=== PATIENT | female | born 1960 | race Caucasian/White ===

== ENCOUNTER 2020-07-27 09:14 | Outpatient (REF) | payer BC, SELFPAY ==
[2020-07-27 11:40] LABS: Hematocrit 43.2 % (37-47); Hemoglobin 13.7 g/dl (12.0-16.0); Mean Corpuscular HGB Conc 31.7 g/dl (31.0-35.0); Mean Corpuscular Hemoglobin 29.1 pg (27.0-33.0); Mean Corpuscular Volume 91.7 fL (80-98); Mean Platelet Volume 10.9 fL (9.4-12.3); Platelet Count 322 X10*3/uL (160-400); Red Blood Count 4.71 X10*6/uL (4.20-5.50); Red Cell Distribution Width 12.7 % (11.0-16.0); White Blood Count 7.7 X10*3/uL (4.8-10.8)
[2020-07-27 11:47] LABS: Glucose Urine UA NEG (NEG); Leukocyte Esterase Urine NEG (NEG); Nitrite Urine NEG (NEG); Specific Gravity - Urine 1.015 (1.005-1.025); Urine Blood 2+ (NEG); Urine Ketones NEG (NEG); Urine Protein NEG (NEG-TRACE)
[2020-07-27 11:54] LABS: Appearance Urine CLEAR; Color Urine YELLOW
[2020-07-27 11:57] LABS: Mucus Urine TRACE /LPF; Renal Epithelial Cells Urine 1+ /LPF; Squamous Epithelial Cell Urine TRACE /LPF; WBC Urine 0-2 /HPF (0-4)
[2020-07-27 12:17] LABS: Thyroid Stimulating Hormone 1.43 uIU/mL (0.32-4.0)
[2020-07-27 12:18] LABS: Alanine Aminotransferase 20 U/L (0-31); Albumin Level 4.4 g/dL (3.5-5.0); Alkaline Phosphatase 76 U/L (39-117); Anion Gap 14 (12-20); Aspartate Amino Transferase 15 U/L (5-31); Bilirubin Total 0.4 mg/dL (0.0-1.0); Blood Urea Nitrogen 13 mg/dL (9-16); Calcium 9.2 mg/dL (8.4-10.2); Carbon Dioxide 26 mmol/L (22-29); Chloride 105 mmol/L (96-108); Cholesterol 218 mg/dL; Estimated Glomerular Filt Rate > 60; Glucose Fasting 101 mg/dL (60-99); HDL Cholesterol 47 mg/dL; LDL Cholesterol Calculated 129 mg/dl; Sodium 140 mmol/L (135-145); Total Protein 7.5 g/dL (6.5-8.0); Triglycerides 210 mg/dL
== END 2020-07-27 09:15 | disposition home or self-care (01) ==
LOC: HO.HMGCLDS 09:14
PROVIDERS: PCP Internal Medicine; Visit Provider Internal Medicine
DX: E78.5 Hyperlipidemia, unspecified (principal); I10 Essential (primary) hypertension; Z00.00 Encounter for general adult medical examination without abnormal findings
CPT/HCPCS: 36415; 80053; 80061; 81001; 84443; 85027

== ENCOUNTER 2021-03-25 08:55 | Outpatient (REF) | payer BC, SELFPAY ==
[2021-03-25 11:51] LABS: Hematocrit 41.2 % (37-47); Hemoglobin 12.9 g/dl (12.0-16.0); Mean Corpuscular HGB Conc 31.3 g/dl (31.0-35.0); Mean Corpuscular Hemoglobin 28.9 pg (27.0-33.0); Mean Corpuscular Volume 92.4 fL (80-98); Platelet Count 308 X10*3/uL (160-400); Red Blood Count 4.46 X10*6/uL (4.20-5.50); Red Cell Distribution Width 12.6 % (11.0-16.0); White Blood Count 7.9 X10*3/uL (4.8-10.8)
[2021-03-25 12:01] LABS: Alanine Aminotransferase 24 U/L (0-31); Albumin Level 4.1 g/dL (3.5-5.0); Alkaline Phosphatase 76 U/L (39-117); Anion Gap 15 (12-20); Aspartate Amino Transferase 20 U/L (5-31); Bilirubin Total 0.5 mg/dL (0.0-1.0); Blood Urea Nitrogen 14 mg/dL (9-16); Calcium 9.3 mg/dL (8.4-10.2); Carbon Dioxide 24 mmol/L (22-29); Chloride 106 mmol/L (96-108); Cholesterol 201 mg/dL; Estimated Glomerular Filt Rate > 60; Glucose Fasting 105 mg/dL (60-99); HDL Cholesterol 40 mg/dL; LDL Cholesterol Calculated 118 mg/dl; Potassium 4.8 mmol/L (3.3-5.1); Sodium 140 mmol/L (135-145); Total Protein 7.1 g/dL (6.5-8.0); Triglycerides 217 mg/dL
[2021-03-25 12:08] LABS: Glucose Urine UA NEG (NEG); Leukocyte Esterase Urine NEG (NEG); Nitrite Urine NEG (NEG); Urine Blood 2+ (NEG); Urine Ketones NEG (NEG); Urine Protein NEG (NEG-TRACE)
[2021-03-25 12:14] LABS: TSH reflex Free T4 2.34 uIU/mL (0.32-4.0)
[2021-03-25 12:18] LABS: Appearance Urine CLEAR; Color Urine YELLOW
[2021-03-25 12:47] LABS: RBC Urine 0-2 /HPF (0); Squamous Epithelial Cell Urine TRACE /LPF; WBC Urine 0-2 /HPF (0-4)
[2021-03-25 12:48] LABS: Bacteria Urine TRACE /LPF; Renal Epithelial Cells Urine TRACE /LPF
== END 2021-03-25 08:56 | disposition home or self-care (01) ==
LOC: HO.HMGCLDS 08:55
PROVIDERS: PCP Internal Medicine; Visit Provider Internal Medicine
DX: Z00.00 Encounter for general adult medical examination without abnormal findings (principal); E78.5 Hyperlipidemia, unspecified
CPT/HCPCS: 36415; 80053; 80061; 81001; 84443; 85027

== ENCOUNTER 2021-08-17 08:21 | Outpatient (REF) | payer BC, SELFPAY ==
[2021-08-17 12:08] LABS: Alanine Aminotransferase 18 U/L (0-31); Albumin Level 4.2 g/dL (3.5-5.0); Alkaline Phosphatase 79 U/L (39-117); Anion Gap 16 (12-20); Aspartate Amino Transferase 16 U/L (5-31); Bilirubin Total 0.4 mg/dL (0.0-1.0); Blood Urea Nitrogen 13 mg/dL (9-16); Calcium 9.9 mg/dL (8.4-10.2); Carbon Dioxide 24 mmol/L (22-29); Chloride 107 mmol/L (96-108); Cholesterol 191 mg/dL; Estimated Glomerular Filt Rate > 60; Glucose Random 115 mg/dL (60-115); HDL Cholesterol 40 mg/dL; LDL Cholesterol Calculated 116 mg/dl; Potassium 4.7 mmol/L (3.3-5.1); Sodium 142 mmol/L (135-145); Total Protein 7.5 g/dL (6.5-8.0); Triglycerides 177 mg/dL
[2021-08-17 12:15] LABS: Vitamin D 25-OH Total 13.2 ng/mL (>30)
== END 2021-08-17 08:22 | disposition home or self-care (01) ==
LOC: HO.HMGCLDS 08:21
PROVIDERS: PCP Internal Medicine; Visit Provider Internal Medicine
DX: Z00.00 Encounter for general adult medical examination without abnormal findings (principal); E78.5 Hyperlipidemia, unspecified; I10 Essential (primary) hypertension
CPT/HCPCS: 36415; 80053; 80061; 82306

== ENCOUNTER 2022-05-07 09:44 | Outpatient (REF) | payer BC, SELFPAY ==
[2022-05-07 11:00] LABS: Appearance Urine Clear; Color Urine Yellow; Glucose Urine UA Negative (Negative); Leukocyte Esterase Urine Trace (Negative); Nitrite Urine Negative (Negative); Urine Blood Trace (Negative); Urine Ketones Negative (Negative); Urine Protein Negative (Neg-Trace)
[2022-05-07 11:05] LABS: Bacteria Urine None Seen (None Seen); Hyaline Casts Urine 0-2 /LPF (0-2); Squamous Epithelial Cell Urine 0-2 /HPF (0-2); WBC Urine 0-5 /HPF (0-5)
[2022-05-07 11:09] LABS: Hematocrit 40.2 % (37.0-47.0); Mean Corpuscular HGB Conc 32.3 g/dl (31.0-35.0); Mean Corpuscular Hemoglobin 29.2 pg (27.0-33.0); Mean Corpuscular Volume 90.3 fL (80.0-98.0); Mean Platelet Volume 10.9 fL (9.4-12.3); Platelet Count 260 X10*3/uL (160-400); Red Blood Count 4.45 X10*6/uL (4.20-5.50); Red Cell Distribution Width 12.7 % (11.0-16.0); White Blood Count 6.3 X10*3/uL (4.8-10.8)
[2022-05-07 11:33] LABS: Alanine Aminotransferase 29 U/L (0-31); Albumin Level 4.1 g/dL (3.5-5.0); Alkaline Phosphatase 74 U/L (39-117); Anion Gap 15 (12-20); Aspartate Amino Transferase 21 U/L (5-31); Bilirubin Total 0.3 mg/dL (0.0-1.0); Blood Urea Nitrogen 11 mg/dL (9-16); Calcium 8.9 mg/dL (8.4-10.2); Carbon Dioxide 23 mmol/L (22-29); Chloride 107 mmol/L (96-108); Cholesterol 187 mg/dL; Estimated Glomerular Filt Rate > 60; Glucose Fasting 102 mg/dL (60-99); HDL Cholesterol 40 mg/dL; LDL Cholesterol Calculated 108 mg/dl; Potassium 4.7 mmol/L (3.3-5.1); Sodium 140 mmol/L (135-145); Total Protein 7.4 g/dL (6.5-8.0); Triglycerides 195 mg/dL
[2022-05-07 12:05] LABS: Vitamin D 25-OH Total 20.1 ng/mL (>30)
== END 2022-05-07 09:45 | disposition home or self-care (01) ==
LOC: HO.HMGCLDS 09:44
PROVIDERS: PCP Internal Medicine; Visit Provider Internal Medicine
DX: E78.5 Hyperlipidemia, unspecified (principal); I10 Essential (primary) hypertension
CPT/HCPCS: 36415; 80053; 80061; 81001; 82306; 85027

== ENCOUNTER 2022-05-30 12:12 | Outpatient (REF) | payer BC, SELFPAY ==
--- NOTE | ~2022-05-30 | XR_ITS ---
EXAMINATION: XR KNEE AP STANDING CLINICAL INFORMATION: Pain right knee COMPARISON: None TECHNIQUE: AP bilateral standing view of the knees was obtained. FINDINGS: Bone alignment is normal. No fracture or dislocation. Question increased sclerosis of the medial metaphysis of the left distal femur. Normal soft tissues. XR/XR knee standing BI IMPRESSION: Question increased sclerosis of the medial distal metaphysis of the left femur are otherwise unremarkable exam.
== END 2022-05-30 12:13 | disposition home or self-care (01) ==
LOC: HO.HMGCX 12:12
PROVIDERS: PCP Internal Medicine; Visit Provider Internal Medicine
DX: M25.561 Pain in right knee (principal); M25.562 Pain in left knee
CPT/HCPCS: 73565

== ENCOUNTER 2022-09-13 14:26 | Outpatient (REF) | payer BC, SELFPAY ==
[2022-09-13 16:40] LABS: Hemoglobin 12.6 g/dl (12.0-16.0); Imm Gran Abs Auto 0.03 X10*3/uL (0.00-0.03); Imm Gran Pct Auto 0.3 % (0.0-0.4); MANUAL DIFF FLAG SCAN; PLT CLUMP 1; SCAN SMEAR FLAG 1
[2022-09-13 16:41] LABS: Basophils Percent Auto 0.4 % (0-2); Eosinophils Absolute Auto 0.1 X10*3/uL (0.0-0.4); Eosinophils Percent Auto 1.5 % (0-4); Hematocrit 38.8 % (37.0-47.0); Lymphocytes Absolute Auto 2.7 X10*3/uL (1.2-4.9); Lymphocytes Percent Auto 28.3 % (20-40); Mean Corpuscular HGB Conc 32.5 g/dl (31.0-35.0); Mean Corpuscular Volume 89.4 fL (80.0-98.0); Monocytes Absolute Auto 0.6 X10*3/uL (0.1-1.2); Monocytes Percent Auto 6.1 % (2-11); Neutrophils Absolute Auto 5.9 x10*3/uL (2.0-8.3); Neutrophils Percent Auto 63.4 % (45-73); Red Blood Count 4.34 X10*6/uL (4.20-5.50); Red Cell Distribution Width 12.6 % (11.0-16.0)
[2022-09-13 16:49] LABS: Blood Urea Nitrogen 14 mg/dL (9-16); C Reactive Protein 8.04 mg/dL (< or = 0.50); Estimated Glomerular Filt Rate 54
[2022-09-13 16:58] LABS: Platelet Count 246 X10*3/uL (160-400)
[2022-09-13 16:59] LABS: SLIDE REVIEW VERIFIED; White Blood Count 9.4 X10*3/uL (4.8-10.8)
== END 2022-09-13 14:27 | disposition home or self-care (01) ==
LOC: HO.HMGCLDS 14:26
PROVIDERS: PCP Internal Medicine; Visit Provider Internal Medicine
DX: R10.9 Unspecified abdominal pain (principal)
CPT/HCPCS: 36415; 82565; 84520; 85025; 86140

== ENCOUNTER 2022-09-14 12:41 | Outpatient (REF) | payer BC, SELFPAY ==
--- NOTE | ~2022-09-14 | CT_ITS ---
EXAMINATION: CT ABDOMEN AND PELVIS WITH CONTRAST CLINICAL INFORMATION: Diverticulitis. COMPARISON: Ultrasound of kidneys 03/23/2015, 01/31/2014 TECHNIQUE: Multidetector volumetric images were obtained from the superior aspect of the liver through the pubic symphysis following administration 85 mL of Omnipaque 350 intravenous contrast. Sagittal and coronal reformatted images were obtained on the technologist's workstation. Oral contrast: Administered This CT examination was performed using dose optimization techniques as appropriate, variously including the following: *Automated exposure control *Adjustment of mA and/or kV according to patient size (this includes techniques or standardized protocols for targeted exams where dose is matched to indication/reason for exam; i.e. extremities or head) *Use of iterative reconstruction technique DLP: 635 mGy-cm FINDINGS: LUNG BASES: The visualized lung bases are unremarkable. LIVER, GALLBLADDER, AND BILIARY TREE: No focal liver lesion. No intrahepatic bile duct dilatation. Right lobe of liver measures 16 cm superior inferior. The gallbladder is unremarkable with no evidence of radiopaque gallstones, gallbladder wall thickening, or obvious pericholecystic inflammatory changes. PANCREAS: Unremarkable. SPLEEN: Unremarkable. ADRENAL GLANDS: Unremarkable. KIDNEYS AND URETERS: RIGHT KIDNEY: There are 3 small nonobstructive calculi in the mid and upper pole of the right kidney. Largest stone at the midpole measuring 5 mm. The other 2 are punctate calcifications at the upper pole. No ureteral calculus. No hydronephrosis. There is a cortical cystic lesion with layering hyperdensity, milk of calcium, at the midpole cortex measuring 1.3 cm. There is an adjacent cortical cyst measuring 1.5 cm. These were both anechoic cyst on renal ultrasound 03/23/2016. No further follow-up imaging recommended. Left kidney: There are 5 small nonobstructive stones in the left kidney. Largest measuring about 2 mm. There is no ureteral calculus. There is no hydronephrosis. Exophytic lesion measuring 1.3 cm upper pole left kidney is slightly hyperdense. Density measurement is 74 Hounsfield units. This was not seen on renal ultrasound 03/23/2016. Likely represents a hyperdense cyst. No further follow-up imaging recommended. 8mm hypodense cystic lesion at the midpole cortex. This is an anechoic cyst on ultrasound study of 03/23/2016 is unchanged in size since prior study. No further follow-up imaging recommended. 1.7 cm parapelvic cyst at the lower pole of left kidney. No further follow-up imaging recommended. BLADDER: Unremarkable. GASTROINTESTINAL TRACT: There are scattered diverticula sigmoid colon. There is focal edema and small volume of fluid adjacent to the proximal sigmoid colon consistent with a mild diverticulitis. There is no bowel obstruction. There is a moderate volume of stool in the colon. The appendix is normal . The small bowel loops are unremarkable. The stomach is normal. There is no hiatal hernia. ABDOMINAL WALL: No significant hernia is appreciated. LYMPH NODES: Normal. VASCULAR: Scattered vascular calcifications of aorta. There is no aneurysm. PELVIC VISCERA: Unremarkable. OSSEOUS STRUCTURES: Unremarkable. CT/CT abdomen pelvis w IV con IMPRESSION: 1. Mild diverticulitis of the proximal sigmoid colon. 2. Bilateral nonobstructive renal calculi. Fleischner guidelines were followed.
[2022-09-14] MEDS: iohexoL 350 MG/ML 100 ML INFUS..BTL IV (15:26)
== END 2022-09-14 12:42 | disposition home or self-care (01) ==
LOC: HO.CT 12:41
PROVIDERS: PCP Internal Medicine; Visit Provider Internal Medicine
DX: R10.9 Unspecified abdominal pain (principal); K57.92 Diverticulitis of intestine, part unspecified, without perforation or abscess without bleeding
CPT/HCPCS: 74177; Q9967

== ENCOUNTER 2022-12-06 14:40 | Outpatient (REF) | payer BC, SELFPAY ==
[2022-12-06 17:33] LABS: Rheumatoid Factor < 13.0 IU/mL (<15.0)
[2022-12-06 17:54] LABS: Erythrocyte Sedimentation Rate 33 MM/HR (0-20)
[2022-12-08 05:29] LABS: Lyme Abs Screen <0.90 index
[2022-12-08 15:13] LABS: Anti Nuclear Antibody Screen NEGATIVE (NEGATIVE)
[2022-12-08 15:54] LABS: Cyclic Citrullinated Peptide <16 UNITS
== END 2022-12-06 14:41 | disposition home or self-care (01) ==
LOC: HO.HMGCLDS 14:40
PROVIDERS: PCP Internal Medicine; Visit Provider Internal Medicine
DX: M25.561 Pain in right knee (principal)
CPT/HCPCS: 36415; 82306; 85652; 86038; 86039; 86200; 86431; 86617; 86618

== ENCOUNTER 2023-02-01 16:00 | Outpatient (RCR) | payer BC, SELFPAY ==
--- NOTE | 2023-01-02 14:53 | MHC.PT.EP ---
[facility] [place] Office [place] Office [place] Office [address] Macario Ervin [address] [phone] F: [phone] F: [phone] F: [phone] F: [phone] Physical Therapy Plan of Care Date of Evaluation: Date of Surgery: n/a Diagnosis: pain in R knee Assessment: Patient is a 62 year old female presenting to PT with complaints of pain in her R knee. Pt reports onset of pain began about 6 months ago due to insidious onset. She presents today with impairments in pain, muscle tightness, patella mobility, hip strength, and burning. 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 Pt expresses nursing home goal of reducing pain, and is motivated to work towards this in PT. Clinical presentation today is most consistent with signs and sx associated with R knee pain and pt will benefit from skilled PT 2 week x 4 weeks to address the following problems and impairments noted upon evaluation: pain, muscle tightness, hip strength, patella mobility, and burning. These problems limit the patient with the following functional activities: ambulating, work, driving, ADLs.. The prescribed treatment plan of care is medically necessary. Co-morbidities of HTN were identified and taken into considerations of plan of care. Pt was educated on HEP, role of PT, prognosis, POC. Frequency and Duration: The patient will be seen 2 x week x 4 weeks Short Term Goals: Pt will demonstrate less tenderness to quads and hs in 2 weeks. Pt will demonstrate reports of less burning around her medial knee in 2 weeks. Pt will demonstrate improved hip MMT strength by 1/3 grade in 2 weeks for improved lumbopelvic stability. Assistant Attorney General Goals: Pt will demonstrate ability to work with min to no pain in 4 weeks for return to PLOF. Pt will demonstrate ability to drive with min to no pain/sx in 4 weeks for return to PLOF. Pt will demonstrate ability to ambulate with min to no pain/sx in 4 weeks for improved access to the community. Treatment Plan: Modalities to reduce pain, spasms and effusion. Manual therapy to restore motion and function. Therapeutic exercise to improve strength and flexibility. Neuromuscular re-education for posture and balance. Therapeutic activities to return to functional activities of daily living. Electronically signed by: Cherry Dalton, PT, DPT, ATC Please sign and return to therapist. Thank you for your referral.
--- NOTE | 2023-02-24 08:55 | MHC.PT.DC ---
[facility] [place] Office [place] Office [place] Office [address] Macario Ervin [address] [phone] F: [phone] F: [phone] F: [phone] F: [phone] Physical Therapy Discharge Report Diagnosis: pain in R knee Date of Surgery: n/a Date of Evaluation: 01/02/23 Date of Discharge: 02/24/23 Treatments to Date: 9 Cancellations to Date: 0 No Shows to Date: 0 Discharge Status: Improved Function Independent with HEP Discharge Summary: Pt saw BREASTFEEDING EDUCATOR for final visit. Pt demosntrating improvements and independent in her HEP. Pt to be d/c and to follow up with MD if limitations continue. Electronically signed by: Cherry Dalton, PT, DPT, ATC Please sign and return to therapist. Thank you for your referral.
== END 2023-02-24 08:55 | disposition home or self-care (01) ==
LOC: HO.PTCHIC 16:00
PROVIDERS: PCP Internal Medicine; Visit Provider Internal Medicine
DX: M25.561 Pain in right knee (principal)
CPT/HCPCS: 97110; 97140; 97161

== ENCOUNTER 2023-05-20 09:15 | Outpatient (REF) | payer BC, SELFPAY ==
[2023-05-20 11:34] LABS: MANUAL DIFF FLAG NO
[2023-05-20 11:40] LABS: Basophils Percent Auto 0.5 % (0-2); Eosinophils Absolute Auto 0.1 X10*3/uL (0.0-0.4); Eosinophils Percent Auto 1.2 % (0-4); Hemoglobin 12.8 g/dl (12.0-16.0); Imm Gran Abs Auto 0.02 X10*3/uL (0.00-0.03); Imm Gran Pct Auto 0.2 % (0.0-0.4); Lymphocytes Absolute Auto 2.7 X10*3/uL (1.2-4.9); Lymphocytes Percent Auto 33.1 % (20-40); Mean Corpuscular Hemoglobin 29.2 pg (27.0-33.0); Mean Corpuscular Volume 91.1 fL (80.0-98.0); Mean Platelet Volume 11.1 fL (9.4-12.3); Monocytes Absolute Auto 0.5 X10*3/uL (0.1-1.2); Monocytes Percent Auto 6.4 % (2-11); Neutrophils Absolute Auto 4.8 x10*3/uL (2.0-8.3); Neutrophils Percent Auto 58.6 % (45-73); Platelet Count 298 X10*3/uL (160-400); Red Blood Count 4.39 X10*6/uL (4.20-5.50); Red Cell Distribution Width 12.6 % (11.0-16.0); White Blood Count 8.3 X10*3/uL (4.8-10.8)
[2023-05-20 12:04] LABS: Alanine Aminotransferase 20 U/L (0-31); Albumin Level 4.2 g/dL (3.5-5.0); Alkaline Phosphatase 72 U/L (39-117); Anion Gap 14 (12-20); Aspartate Amino Transferase 18 U/L (5-31); Bilirubin Total 0.4 mg/dL (0.0-1.0); Blood Urea Nitrogen 12 mg/dL (9-16); Calcium 9.4 mg/dL (8.4-10.2); Carbon Dioxide 21 mmol/L (22-29); Chloride 110 mmol/L (96-108); Cholesterol 173 mg/dL (<200); Estimated Glomerular Filt Rate > 60; Glucose Fasting 99 mg/dL (60-99); HDL Cholesterol 42 mg/dL (>40); LDL Cholesterol Calculated 102 mg/dL (<100); Potassium 4.1 mmol/L (3.3-5.1); Sodium 141 mmol/L (135-145); Total Protein 7.4 g/dL (6.5-8.0); Triglycerides 147 mg/dL (<150)
[2023-05-20 12:18] LABS: TSH reflex Free T4 0.96 uIU/mL (0.32-4.0); Vitamin D 25-OH Total 53.1 ng/mL (>30)
== END 2023-05-20 09:16 | disposition home or self-care (01) ==
LOC: HO.HMGCLDS 09:15
PROVIDERS: PCP Internal Medicine; Visit Provider Internal Medicine
DX: Z00.00 Encounter for general adult medical examination without abnormal findings (principal); I10 Essential (primary) hypertension; E78.5 Hyperlipidemia, unspecified
CPT/HCPCS: 36415; 80053; 80061; 82306; 84443; 85025

== ENCOUNTER 2023-05-31 11:11 | Outpatient (AMB) | payer BC, SELFPAY ==
[2023-05-31 11:36] VITALS: BP 122/72; PULSE 86; O2SAT 98; BMI 35.2
--- NOTE | 2023-05-31 11:36 | A.OFFPC_ITS ---
Vital Signs 05/31/23 11:36 Height 5 ft 6 in Weight 218 lb BMI 35.2 BP 122/72 Blood Pressure Location Lt brachial Position Sitting Pulse 86 Pulse Source Pulse Oximeter Pulse Oximetry (%) 98 Oxygen Delivery Method Room Air Intake Visit Reasons: Annual PE Intake Note: Pt is here today for PE.Pt states that she has been having diarrhea over the weekend she is better now. Pt also states that she has been having headche. Allergies Sulfa (Sulfonamide Antibiotics) Allergy (Unknown, Verified 05/31/23 11:36) Rash Medication List - Last Reconciled 05/31/23 by Adilia Shoemaker MD atorvastatin 20 mg PO DAILY cholecalciferol (vitamin D3) 50 mcg PO DAILY lisinopril 5 mg PO DAILY Tobacco use date assessed: 05/31/23 Dental Screening Dental Screen Date: 05/31/23 Did you have a dental visit in the last 12 months?: Yes Did you have a dental problem in the last 6 months where you did not have access to dental care?: No Was dental information given to patient?: Patient has dentist HPI Annual PE HPI Details Pt presents for PE. PFSH Medical History Normal Pap smear Mammogram normal Hypertension Hyperlipidemia Annual physical exam Surgical History H/O colonoscopy Family History Father No problems noted. Mother No problems noted. Social History Housing: House Patient Tobacco Use Status: Never used Tobacco e-Cigarette/Vaping Use: Never Used Current occupational status: employed Cognitive needs: No Hearing needs: No Vision needs: Yes Questionnaire Thrive Questionnaire Date Thrive assessed: 12/06/22 AUDIT C Alcohol Use Questionnaire (AUDIT-C) 1. How often do you have a drink containing alcohol?: Never 3. How often do you have six or more drinks on one occasion?: Never Total Score: 0 CRISTINA-7 AMB Questionnaire CRISTINA-7 Date CRISTINA - 7 assessed: 12/06/22 Source: Developed by Drs. Ish Reyes, Candelaria Garcia, Merlin Oliver and colleagues, with an educational liat from [employer]. Review of Systems Const All systems reviewed & are unremarkable except as noted in HPI and below Reports no additional complaints Eyes Reports no additional complaints ENT Reports no additional complaints Card Reports no additional complaints Resp Reports no additional complaints GI Reports no additional complaints Reports no additional complaints Physical exam (Primary Care) Vital Signs: Last Vital Signs Pulse 86 05/31/23 11:36 BP 122/72 05/31/23 11:36 Pulse Ox 98 05/31/23 11:36 Oxygen Delivery Method Room Air 05/31/23 11:36 BMI result Body Mass Index 35.2 Tobacco/Smoking Status: Tobacco use Status Tobacco use date assessed 05/31/23 05/31/23 11:37 Patient Tobacco Use Status Never used Tobacco 05/31/23 11:37 e-Cigarette/Vaping Use Never Used 05/31/23 11:37 Thrive Assessment: Date of Thrive Assessment Date Thrive assessed 12/06/22 05/31/23 11:37 Const General: no acute distress HENMT Head: Yes normal to inspection Ears: hearing grossly normal bilaterally Face and sinus: Yes normal facial exam Mouth: Normal oral and palatal mucosa present Throat: Yes posterior oropharynx normal Eyes General: appearance normal, both eyes and all related structures Neck Neck: Yes no lymphadenopathy and Yes supple Resp Effort & Inspection: normal respiratory effort Auscultation: clear to auscultation bilaterally Cardio Rhythm: regular rhythm Heart sounds: S1 normal heart sound present and S2 normal heart sound present GI Inspection: Yes normal to inspection Palpation (GI): Soft to palpation Percussion: Yes normal to percussion Auscultation: normal bowel sounds Assessment and Plan Assessment & Plan (1) Hypertension: Code(s): I10 - Essential (primary) hypertension Plan: cont Lisinopril (2) Hyperlipidemia: Code(s): E78.5 - Hyperlipidemia, unspecified Plan: cont statin (3) Annual physical exam: Code(s): Z00.00 - Encounter for general adult medical examination without abnormal findings Plan: well balanced diet, regular exercise, weight loss discussed, patient will call GI to schedule a follow-up colonoscopy. She is up-to-date with mammogram and Pap smear by flame cutting machine operatorLupe PE in 1 yr Orders: Orders Lipid Panel 365 Days E78.5 - Hyperlipidemia, unspecified, I10 - Essential (primary) hypertension, Z00.00 - Encounter for general adult medical examination without abnormal findings TSH reflex Free T4 365 Days E78.5 - Hyperlipidemia, unspecified, I10 - Essential (primary) hypertension, Z00.00 - Encounter for general adult medical examination without abnormal findings Vitamin D 25-OH Total 365 Days E78.5 - Hyperlipidemia, unspecified, I10 - Essential (primary) hypertension, Z00.00 - Encounter for general adult medical examination without abnormal findings Comprehensive [place]. Panel Fast 365 Days E78.5 - Hyperlipidemia, unspecified, I10 - Essential (primary) hypertension, Z00.00 - Encounter for general adult medical examination without abnormal findings Complete Blood Count Auto Diff 365 Days E78.5 - Hyperlipidemia, unspecified, I10 - Essential (primary) hypertension, Z00.00 - Encounter for general adult medical examination without abnormal findings Coding Level of Care Code Est Pt Prev Care 40-64y(38664) Diagnoses Hypertension I10 Hyperlipidemia E78.5 Annual physical exam Z00.00
== END 2023-05-31 12:27 | disposition home or self-care (01) ==
PROVIDERS: Visit Provider Internal Medicine
DX: I10 Essential (primary) hypertension (principal); E78.5 Hyperlipidemia, unspecified; Z00.00 Encounter for general adult medical examination without abnormal findings
CPT/HCPCS: 99396

== ENCOUNTER 2024-06-01 10:14 | Outpatient (REF) | payer BC, SELFPAY ==
[2024-06-01 11:01] LABS: MANUAL DIFF FLAG NO
[2024-06-01 11:23] LABS: Basophils Percent Auto 0.5 % (0-2); Eosinophils Absolute Auto 0.1 X10*3/uL (0.0-0.4); Eosinophils Percent Auto 1.5 % (0-4); Hematocrit 40.3 % (37.0-47.0); Imm Gran Abs Auto 0.04 X10*3/uL (0.00-0.03); Imm Gran Pct Auto 0.5 % (0.0-0.4); Lymphocytes Absolute Auto 2.7 X10*3/uL (1.2-4.9); Lymphocytes Percent Auto 33.3 % (20-40); Mean Corpuscular HGB Conc 32.3 g/dl (31.0-35.0); Mean Corpuscular Hemoglobin 29.4 pg (27.0-33.0); Mean Corpuscular Volume 91.2 fL (80.0-98.0); Mean Platelet Volume 10.8 fL (9.4-12.3); Monocytes Absolute Auto 0.6 X10*3/uL (0.1-1.2); Monocytes Percent Auto 7.1 % (2-11); Neutrophils Absolute Auto 4.6 x10*3/uL (2.0-8.3); Neutrophils Percent Auto 57.1 % (45-73); Platelet Count 280 X10*3/uL (160-400); Red Blood Count 4.42 X10*6/uL (4.20-5.50); Red Cell Distribution Width 12.5 % (11.0-16.0)
[2024-06-01 12:05] LABS: Alanine Aminotransferase 20 U/L (0-31); Albumin Level 4.3 g/dL (3.5-5.0); Alkaline Phosphatase 70 U/L (39-117); Anion Gap 13 (12-20); Aspartate Amino Transferase 18 U/L (5-31); Bilirubin Total 0.4 mg/dL (0.0-1.0); Blood Urea Nitrogen 12 mg/dL (9-16); Calcium 9.2 mg/dL (8.4-10.2); Carbon Dioxide 25 mmol/L (22-29); Chloride 106 mmol/L (96-108); Cholesterol 175 mg/dL (<200); Estimated Glomerular Filt Rate > 60; Glucose Fasting 89 mg/dL (60-99); HDL Cholesterol 46 mg/dL (>40); LDL Cholesterol Calculated 101 mg/dL (<100); Potassium 4.1 mmol/L (3.3-5.1); Sodium 140 mmol/L (135-145); Total Protein 7.4 g/dL (6.5-8.0); Triglycerides 141 mg/dL (<150)
[2024-06-01 12:06] LABS: TSH reflex Free T4 0.99 uIU/mL (0.32-4.0); Vitamin D 25-OH Total 31.4 ng/mL (>30)
== END 2024-06-01 10:15 | disposition home or self-care (01) ==
LOC: HO.HMGCLDS 10:14
PROVIDERS: PCP Internal Medicine; Visit Provider Internal Medicine
DX: Z00.00 Encounter for general adult medical examination without abnormal findings (principal); I10 Essential (primary) hypertension; E78.5 Hyperlipidemia, unspecified
CPT/HCPCS: 36415; 80053; 80061; 82306; 84443; 85025

== ENCOUNTER 2024-06-12 11:16 | Outpatient (AMB) | payer BC, SELFPAY ==
[2024-06-12 11:23] VITALS: BP 124/76; PULSE 76; O2SAT 97; BMI 34.7
--- NOTE | 2024-06-12 11:23 | A.OFFPC_ITS ---
Vital Signs 06/12/24 11:23 Height 5 ft 6 in Weight 215 lb BMI 34.7 BP 124/76 Blood Pressure Location Lt brachial Position Sitting Pulse 76 Pulse Source Pulse Oximeter Pulse Oximetry (%) 97 Oxygen Delivery Method Room Air Intake Visit Reasons: Annual PE Intake Note: Pt is here today for PE. Allergies Sulfa (Sulfonamide Antibiotics) Allergy (Unknown, Verified 06/12/24 11:24) Rash Medication List - Last Reconciled 06/12/24 by Adilia Shoemaker MD atorvastatin 20 mg PO DAILY cholecalciferol (vitamin D3) 50 mcg PO DAILY lisinopril 5 mg PO DAILY Tobacco use date assessed: 06/12/24 Dental Screening Dental Screen Date: 06/12/24 Did you have a dental visit in the last 12 months?: Yes Did you have a dental problem in the last 6 months where you did not have access to dental care?: No Was dental information given to patient?: Patient has dentist HPI Annual PE HPI Details Pt presents for PE. PFSH Medical History Normal Pap smear Mammogram normal Hypertension Hyperlipidemia Annual physical exam Surgical History H/O colonoscopy Family History Father No problems noted. Mother No problems noted. Social History Housing: House Patient Tobacco Use Status: Never used Tobacco e-Cigarette/Vaping Use: Never Used service: No Current occupational status: employed Cognitive needs: No Hearing needs: No Vision needs: Yes Questionnaire PHQ-9 Over the last 2 weeks, how often have you been bothered by any of the following problems? 1. Little interest or pleasure in doing things: not at all 2. Feeling down, depressed, or hopeless: not at all 3. Trouble falling or staying asleep, or sleeping too much: not at all 4. Feeling tired or having little energy: not at all 5. Poor appetite or overeating: not at all 6. Feeling bad about yourself - or that you are a failure or have let yourself or your family down: not at all 7. Trouble concentrating on things, such as reading the newspaper or watching television: not at all 8. Moving or speaking so slowly that other people could have noticed. Or the opposite - being so fidgety or restless that you have been moving around a lot more than usual: not at all 9. Thoughts that you would be better off or of hurting yourself in some way: not at all Total score: 0 Depression Screening Interpretation: Negative Depression Screening Done: Yes 94859 - PHQ-9 Billing: Yes Source: Developed by Drs. Ish Reyes, Candelaria Garcia, Merlin Oliver and colleagues, with an educational liat from [employer]. Thrive Questionnaire Date Thrive assessed: 06/12/24 I am a: Patient What is your living situation today?: I have a steady place to live Within the past 12 months, did the food you bought not last and you didn't have the money to get more?: Never true Within the past 12 months, did you worry whether your food would run out before you got money to buy more?: Never true Do you have trouble paying for medicines?: No Do you have trouble getting transportation to medical appointments?: No Do you have trouble paying your heating and electricity bill?: No Do you have trouble taking care of your child, family member or friend?: No Do you have trouble with day-to-day activities such as bathing, preparing meals, shopping, managing finances, etc.?: No Are you currently unemployed and looking for a job?: No Are you interested in more education?: No Please select the resources that you would like help with: None THRIVE Score: 0 AUDIT C Alcohol Use Questionnaire (AUDIT-C) 1. How often do you have a drink containing alcohol?: Never 3. How often do you have six or more drinks on one occasion?: Never Total Score: 0 CRISTINA-7 AMB Questionnaire CRISTINA-7 Date CRISTINA - 7 assessed: 06/12/24 Feeling nervous, anxious, or on edge: 0 = Not at all Not being able to stop or control worryin = Not at all Worrying too much about different things: 0 = Not at all Trouble relaxin = Not at all Being so restless that it is hard to sit still: 0 = Not at all Becoming easily annoyed or irritable: 0 = Not at all Feeling afraid as if something awful might happen: 0 = Not at all Total CRISTINA-7 score (0-4 normal; 5-9 mild; 10-14 moderate; 15-21 severe): 0 Source: Developed by Drs. Ish Reyes, Candelaria Garcia, Merlin Oliver and colleagues, with an educational liat from [employer]. CRISTINA-7 Assessment Billing CRISTINA-7 Assessment Tool: CRISTINA-7 Assessment 11296 Review of Systems Const All systems reviewed & are unremarkable except as noted in HPI and below Eyes Reports no additional complaints Card Reports no additional complaints Resp Reports no additional complaints GI Reports no additional complaints Reports no additional complaints Physical exam (Primary Care) Vital Signs: Last Vital Signs Pulse 76 06/12/24 11:23 BP 124/76 06/12/24 11:23 Pulse Ox 97 06/12/24 11:23 Oxygen Delivery Method Room Air 06/12/24 11:23 BMI result Body Mass Index 34.7 Tobacco/Smoking Status: Tobacco use Status Tobacco use date assessed 06/12/24 06/12/24 11:25 Patient Tobacco Use Status Never used Tobacco 06/12/24 11:25 e-Cigarette/Vaping Use Never Used 06/12/24 11:23 PHQ-9: PHQ-9 Score PHQ-9: Total score 0 06/12/24 11:37 Depression Screening Interpretation: Negative Thrive Assessment: Date of Thrive Assessment Date Thrive assessed 06/12/24 06/12/24 11:37 Const General: no acute distress HENMT Head: Yes normal to inspection Ears: hearing grossly normal bilaterally Face and sinus: Yes normal facial exam Mouth: Normal oral and palatal mucosa present Throat: Yes posterior oropharynx normal Eyes General: appearance normal, both eyes and all related structures Neck Neck: Yes no lymphadenopathy and Yes supple Resp Effort & Inspection: normal respiratory effort Auscultation: clear to auscultation bilaterally Cardio Rhythm: regular rhythm Heart sounds: S1 normal heart sound present and S2 normal heart sound present GI Inspection: Yes normal to inspection Palpation (GI): Soft to palpation Percussion: Yes normal to percussion Auscultation: normal bowel sounds Coding Level of Care Code Est Pt Prev Care 40-64y(25627) Diagnoses Annual physical exam Z00.00 H/O colonoscopy Z98.890 Hypertension I10 Hyperlipidemia E78.5 Additional Codes CRISTINA-7 Assessment Billing - CRISTINA-7 Assessment Tool: CRISTINA-7 Assessment 88153 ([id number]) Assessment & Plan Assessment & Plan (1) Annual physical exam: Code(s): Z00.00 - Encounter for general adult medical examination without abnormal findings Category: Medical Plan: well balanced diet, regular exercise, weight loss discussed. Pt is up to date with mammogram, pap by after school driver (2) H/O colonoscopy: Comment: EGD colonoscopy 2018 repeat 5 yrs, 12/2023 5 polyps Zeke Champagne, repeat 1 yr Code(s): Z98.890 - Other specified postprocedural states Category: Surgical Plan: repeat colonoscopy in 1 yr (3) Hypertension: Code(s): I10 - Essential (primary) hypertension Category: Medical Plan: Continue Lisinopril (4) Hyperlipidemia: Code(s): E78.5 - Hyperlipidemia, unspecified Category: Medical Plan: Continue statin Orders: Orders UA w Microscopic 1 Year E78.5 - Hyperlipidemia, unspecified, I10 - Essential (primary) hypertension, Z00.00 - Encounter for general adult medical examination without abnormal findings TSH reflex Free T4 1 Year E78.5 - Hyperlipidemia, unspecified, I10 - Essential (primary) hypertension, Z00.00 - Encounter for general adult medical examination without abnormal findings Comprehensive [place]. Panel Fast 1 Year E78.5 - Hyperlipidemia, unspecified, I10 - Essential (primary) hypertension, Z00.00 - Encounter for general adult medical examination without abnormal findings Complete Blood Count Auto Diff 1 Year E78.5 - Hyperlipidemia, unspecified, I10 - Essential (primary) hypertension, Z00.00 - Encounter for general adult medical examination without abnormal findings Lipid Panel 1 Year E78.5 - Hyperlipidemia, unspecified, I10 - Essential (primary) hypertension, Z00.00 - Encounter for general adult medical examination without abnormal findings Medications: Refilled atorvastatin 20 mg PO DAILY 90 tabs 3RF lisinopril 5 mg PO DAILY 90 tabs 3RF cholecalciferol (vitamin D3) 50 mcg PO DAILY 90 caps 3RF
== END 2024-06-12 12:16 | disposition home or self-care (01) ==
PROVIDERS: PCP Internal Medicine; Visit Provider Internal Medicine
DX: Z00.00 Encounter for general adult medical examination without abnormal findings (principal); Z98.890 Other specified postprocedural states; I10 Essential (primary) hypertension; E78.5 Hyperlipidemia, unspecified

== ENCOUNTER → 2024-06-12 11:16 | Outpatient (BNVA) | payer BC, SELFPAY | PROVIDERS: PCP Internal Medicine; Visit Provider Internal Medicine | DX: Z00.00 Encounter for general adult medical examination without abnormal findings (principal); I10 Essential (primary) hypertension; E78.5 Hyperlipidemia, unspecified; Z79.899 Other long term (current) drug therapy | CPT/HCPCS: 96127 ==

== ENCOUNTER 2025-06-07 09:04 | Outpatient (REF) | payer BC, SELFPAY ==
--- OUTSIDE RECORDS SUMMARY | 2025-06-07 09:07 | XMS_ITS | Clinical Summary ---
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 May substitue any PEG. Starting at 6PM the night before your procedure drink 1 8oz glasses at your own pace until you complete half of the gallon. Finish 2nd half of the gallon 5 hours before your procedure. 4000 mL 5 Active bisacodyL (DULCOLAX) 5 mg EC tablet Take 2 tablets by mouth right before beginning bowel prep. See instructions provided by the office 2 tablet 5 Active lisinopriL (PRINIVIL,ZESTR IL) 5 mg tablet Take 1 tablet (5 mg total) by mouth 1 (one) time each day. Active atorvastatin (LIPITOR) 20 mg tablet Take 1 tablet (20 mg total) by mouth 1 (one) time each day. Active cholecalciferol (VITAMIN D-3) 50 mcg (2,000 unit) capsule Take 1 capsule (2,000 Units total) by mouth 1 (one) time each day. 5 Active Surgical History Surgery Date Site/Laterality Comments PARATHYROIDECTOMY Medical History Medical History Date Comments Hypertension Hyperlipidemia Social History Tobacco Use Types Packs/Day Years Used Date Smoking Tobacco: Former Cigarettes Smokeless Tobacco: Never Tobacco Cessation:Counseling Given: Not Answered Alcohol Use Standard Drinks/Week Comments Yes 0 (1 standard drink = 0.6 oz pur e alcohol) occ Interpersonal Safety Answer Date Record ed Physical Abuse Unrecognized value 01/10/2025 Verbal Abuse Unrecognized value 01/10/2025 Comments Unknown Sex and Gender Information Value Date Recorded Sex Assigned at Not on file Legal Sex Female 4:50 PM EDT Gender Identity Not on file Sexual Orientation Not on file Obstetrics History Last Filed Vital Signs Vital Sign Reading Time Taken Comments Blood Pressure 124/75 01/10/2025 3:12 PM EDT Pulse 75 01/10/2025 3:12 PM EDT Temperature 36.9 C (98.4 F) 01/10/2025 2:52 PM EDT Respiratory Rate 16 01/10/2025 3:12 PM EDT Oxygen Saturation 100% 01/10/2025 3:12 PM EDT Inhaled Oxygen Concentration - - Weight 99.8 kg (220 lb) 01/10/2025 2:01 PM EDT Height 170.2 cm (5' 7 ) 01/10/2025 2:01 PM EDT Body Mass Index 34.46 01/10/2025 2:01 PM EDT Plan of Treatment Health Maintenance Due Date Last Done Comments Breast Cancer Screening 1960 Cervical Cancer Screening: P ap Smear 1983 HIV Screening 03/19/2024 Hepatitis C Screening 03/19/2024 Social Influencers of Health Screening 03/19/2024 Depression Screening 08/28/2024 COVID-19 Vaccine (4 - 2024-2 6 season) 2025 08/08/2021, 12/19/2020, 11/27/2020 Influenza Vaccine (#1) 2025 06/17/2020 Colorectal Cancer Screening: Colonoscopy 01/11/2028 01/10/2025, 01/02/2024 DTaP,Tdap,and Td Vaccines (2 - Td or Tdap) 04/25/2031 04/25/2021 RSV Immunization Adult Patients (1 - 1-dose 75+ series) 2037 Pneumococcal Vaccine: 50+ Years Completed 08/24/2024 Zoster Vaccines Completed 12/07/2024, 08/24/2024 HIB Vaccines Aged Out No longer eligi ble based on patient's age to complete this topic HPV Vaccines Aged Out No longer eligi ble based on patient's age to complete this topic Hepatitis A Vaccines Aged Out No long er eligible based on patient's age to complete this topic Hepatitis B Vaccines Aged Out No long er eligible based on patient's age to complete this topic IPV Vaccines Aged Out No longer eligi ble based on patient's age to complete this topic MMR Vaccines Aged Out No longer eligi ble based on patient's age to complete this topic Meningococcal ACWY Vaccine Aged Out N o longer eligible based on patient's age to complete this topic Meningococcal B Vaccine Aged Out No l onger eligible based on patient's age to complete this topic RSV Immunization Patients Under 20 months Aged Out No longer eligible b ased on patient's age to complete this topic Varicella Vaccines Aged Out No longer eligible based on patient's age to complete this topic Procedures Procedure Name Priority Date/Time Associated Diagnosis Comments COLONOSCOPY Routine 01/10/2025 2:51 PM EDT Hx of colonic polyps from Last 3 Months or Most Recently Relevant to Health Maintenance Results * COLONOSCOPY Anesthesia - MAC; [facility] ENDOSCOPY (01/10/2025 2:51 PM EDT) Anatomical Region Laterality Modality Endoscopy 01/10/2025 2:22 PM EDT Impressions 01/10/2025 2:50 PM EDT - Hemorrhoids found on perianal exam. - One 6 mm polyp in the cecum, removed with a cold snare. Resected and retrieved. - The examination was otherwise normal on direct and retroflexion views. Recommendation: - - Discharge patient to home. - High fiber diet. - Continue present medications. - Await pathology results. - Repeat colonoscopy for surveillance based on pathology results. Narrative 01/10/2025 2:50 PM EDT [facility] Patient Name: Isha Hayes Procedure Date: 01/10/2025 2:22 PM Date of : 1960 Age: 64 Gender: Female Note Status: Finalized Attending MD: John Head DO, [id number] Procedure Date No Time: 01/10/2025 Procedure: Colonoscopy Indications: High risk colon cancer surveillance: Personal history of colonic polyps Providers: John Head DO Referring MD: Adilia Shoemaker MD Medicines: Monitored Anesthesia Care Complications: No immediate complications. Estimated blood loss: Minimal. Estimated Blood Loss: Estimated blood loss was minimal. Procedure: Pre-Anesthesia Assessment: - - Prior to the procedure, a History and Physical was performed, and patient medications and allergies were reviewed. The patient is competent. The risks and benefits of the procedure and the sedation options and risks were discussed with the patient. All questions were answered and informed consent was obtained. Patient identification and proposed procedure were verified by the physician, the nurse, the anesthesiologist, the change management facilitator and the donor technician in the pre-procedure area in the endoscopy suite. Mental Status Examination: alert and oriented. Airway Examination: normal oropharyngeal airway and neck mobility. Respiratory Examination: clear to auscultation. CV Examination: normal. Prophylactic Antibiotics: The patient does not require prophylactic antibiotics. Prior Anticoagulants: The patient has taken no anticoagulant or antiplatelet agents. ASA Grade Assessment: II - A patient with severe systemic disease. After reviewing the risks and benefits, the patient was deemed in satisfactory condition to undergo the procedure. The anesthesia plan was to use monitored anesthesia care (MAC). Immediately prior to administration of medications, the patient was re-assessed for adequacy to receive sedatives. The heart rate, respiratory rate, oxygen saturations, blood pressure, adequacy of pulmonary ventilation, and response to care were monitored throughout the procedure. The physical status of the patient was re-assessed after the procedure. After I obtained informed consent, the scope was passed under direct vision. Throughout the procedure, the patient's blood pressure, pulse, and oxygen saturations were monitored continuously. The Olympus Pediatric Colonoscope was introduced through the anus and advanced to the cecum, identified by appendiceal orifice and ileocecal valve. The colonoscopy was performed without difficulty. The patient tolerated the procedure well. The quality of the bowel preparation was good. The ileocecal valve, appendiceal orifice, and rectum were photographed. Findings: Hemorrhoids were found on perianal exam. A few small-mouthed diverticula were found in the sigmoid colon and descending colon. There was no evidence of diverticular bleeding. A 6 mm polyp was found in the cecum. The polyp was sessile. The polyp was removed with a cold snare. Resection and retrieval were complete. Verification of patient identification for the specimen was done. Estimated blood loss was minimal. The exam was otherwise without abnormality on direct and retroflexion views. Procedure Code(s): --- Professional --- 89793, Colonoscopy, flexible; with removal of tumor(s), polyp(s), or other lesion(s) by snare technique Diagnosis Code(s): --- Professional --- D12.0, Benign neoplasm of cecum Z86.010, Personal history of colonic polyps K64.9, Unspecified hemorrhoids CPT copyright 2020 [employer]. All rights reserved. The codes documented in this report are preliminary and upon cloth booker review may be revised to meet current compliance requirements. JOHN Head DO 01/10/2025 2:50:13 PM This report has been signed electronically.John Head DO Number of Addenda: 0 Note Initiated On: 01/10/2025 2:22 PM Scope Withdrawal Time: 0 hours 6 minutes 28 seconds Scope In: 2:40:12 PM Scope Out: 2:48:53 PM Endoscopy Department at [facility] - [address] [place] [id number] Procedure Note John Head DO - 01/10/2025 [facility] Patient Name: Isha Hayes Procedure Date: 01/10/2025 2:22 PM Date of : 1960 Age: 64 Gender: Female Note Status: Finalized Attending MD: John Head DO, [id number] Procedure Date No Time: 01/10/2025 Procedure: Colonoscopy Indications: High risk colon cancer surveillance: Personalhistory of colonic polyps Providers: John Head DO Referring MD: Adilia Shoemaker MD Medicines: Monitored Anesthesia Care Complications: No immediate complications. Estimated blood loss: Minimal. Estimated Blood Loss: Estimated blood loss was minimal. Procedure: Pre-Anesthesia Assessment: - - Prior to the procedure, a History and Physicalwas performed, and patient medications and allergieswere reviewed. The patient is competent. The risks and benefits of the procedure and the sedation optionsand risks were discussed with the patient. Allquestions were answered and informed consent was obtained. Patient identification and proposed procedure were verified by the physician, the nurse, the anesthesiologist, the change management facilitator and thetechnician in the pre-procedure area in the endoscopy suite. Mental Status Examination: alert and oriented.Airway Examination: normal oropharyngeal airway and neck mobility. Respiratory Examination: clear to auscultation. CV Examination: normal. Prophylactic Antibiotics: The patient does not requireprophylactic antibiotics. Prior Anticoagulants: The patient has taken no anticoagulant or antiplatelet agents. ASA Grade Assessment: II - A patient with severesystemic disease. After reviewing the risks and benefits,the patient was deemed in satisfactory condition to undergo the procedure. The anesthesia plan was touse monitored anesthesia care (MAC). Immediately priorto administration of medications, the patient was re-assessed for adequacy to receive sedatives. The heart rate, respiratory rate, oxygen saturations, blood pressure, adequacy of pulmonary ventilation,and response to care were monitored throughout the procedure. The physical status of the patient was re-assessed after the procedure. After I obtained informed consent, the scope was passed under direct vision. Throughout theprocedure, the patient's blood pressure, pulse, and oxygen saturations were monitored continuously. TheOlympus Pediatric Colonoscope was introduced through theanus and advanced to the cecum, identified byappendiceal orifice and ileocecal valve. The colonoscopy was performed without difficulty. The patient tolerated the procedure well. The quality of the bowel preparation was good. The ileocecal valve,appendiceal orifice, and rectum were photographed. Findings: Hemorrhoids were found on perianal exam. A few small-mouthed diverticula were found in the sigmoid colon and descending colon. There was no evidence of diverticular bleeding. A 6 mm polyp was found in the cecum. The polyp was sessile. The polyp was removed with a cold snare. Resection and retrieval were complete. Verificationof patient identification for the specimen was done. Estimated blood loss was minimal. The exam was otherwise without abnormality ondirect and retroflexion views. Procedure Code(s): --- Professional --- 48419, Colonoscopy, flexible; with removal of tumor(s), polyp(s), or other lesion(s) by snare technique Diagnosis Code(s): --- Professional --- D12.0, Benign neoplasm of cecum Z86.010, Personal history of colonic polyps K64.9, Unspecified hemorrhoids CPT copyright 2020 [employer]. All rights reserved. The codes documented in this report are preliminary and upon cloth booker reviewmay be revised to meet current compliance requirements. JOHN Head DO 01/10/2025 2:50:13 PM This report has been signed electronically.John Head DO Number of Addenda: 0 Note Initiated On: 01/10/2025 2:22 PM Scope Withdrawal Time: 0 hours 6 minutes 28 seconds Scope In: 2:40:12 PM Scope Out: 2:48:53 PM Endoscopy Department at [facility] - [address] [place] [id number] IMPRESSION: - Hemorrhoids found on perianal exam. - One 6 mm polyp in the cecum, removed with a cold snare. Resected and retrieved. - The examination was otherwise normal on directand retroflexion views. Recommendation: - - Discharge patient to home. - High fiber diet. - Continue present medications. - Await pathology results. - Repeat colonoscopy for surveillance based on pathology results. John Head DO GI~PROCEDURE ORDERABLES Final Re sult from Last 3 Months or Most Recently Relevant to Health Maintenance Insurance Care Teams Auto Body Mechanic Relationship Specialty Start Date End Date Adilia Shoemaker MD [address] [place] [address] PCP - General Internal Medicine 01/10/25
[2025-06-07 11:06] LABS: MANUAL DIFF FLAG NO
[2025-06-07 11:10] LABS: Hematocrit 41.3 % (37.0-47.0); Hemoglobin 13.1 g/dl (12.0-16.0); Imm Gran Abs Auto 0.02 X10*3/uL (0.00-0.03); Imm Gran Pct Auto 0.3 % (0.0-0.4); Lymphocytes Absolute Auto 2.4 X10*3/uL (1.2-4.9); Mean Corpuscular HGB Conc 31.7 g/dl (31.0-35.0); Mean Corpuscular Hemoglobin 29.2 pg (27.0-33.0); Mean Corpuscular Volume 92.0 fL (80.0-98.0); NRBC Abs Auto 0.000 X10*3/uL (0.0-0.012); NRBC Pct Auto 0.0 /100WBC (0.0-0.2); Platelet Count 302 X10*3/uL (160-400); Red Blood Count 4.49 X10*6/uL (4.20-5.50); White Blood Count 6.8 X10*3/uL (4.8-10.8)
[2025-06-07 11:41] LABS: Appearance Urine Clear; Glucose Urine UA Negative (Negative); PH 7.0 (5.0-9.0); Specific Gravity - Urine 1.020 (1.005-1.025); UMIC TRIGGER UA YES
[2025-06-07 12:18] LABS: Alanine Aminotransferase 22 U/L (0-31); Albumin Level 4.4 g/dL (3.5-5.0); Alkaline Phosphatase 74 U/L (39-117); Anion Gap 13 (12-20); Aspartate Amino Transferase 24 U/L (5-31); Blood Urea Nitrogen 18 mg/dL (9-16); Calcium 9.2 mg/dL (8.4-10.2); Carbon Dioxide 24 mmol/L (22-29); Chloride 108 mmol/L (96-108); Cholesterol 207 mg/dL (<200); Estimated Glomerular Filt Rate > 60; HDL Cholesterol 44 mg/dL (>40); Potassium 4.2 mmol/L (3.3-5.1); Sodium 141 mmol/L (135-145); Total Protein 7.2 g/dL (6.5-8.0); Triglycerides 140 mg/dL (<150)
== END 2025-06-07 09:05 | disposition home or self-care (01) ==
LOC: HO.HMGCLDS 09:04
PROVIDERS: PCP Internal Medicine; Visit Provider Internal Medicine
DX: Z00.00 Encounter for general adult medical examination without abnormal findings (principal); I10 Essential (primary) hypertension; E78.5 Hyperlipidemia, unspecified
CPT/HCPCS: 36415; 80053; 80061; 81001; 84443; 85025

== ENCOUNTER 2025-06-13 12:59 | Outpatient (AMB) | payer BC, SELFPAY ==
[2025-06-13 13:01] VITALS: BP 124/74; PULSE 87; RESP 16; TEMP 36.6; O2SAT 99; BMI 35.8
--- NOTE | 2025-06-13 13:01 | MHC.PC.OV ---
Vital Signs 06/13/25 13:01 Height 5 ft 6 in Weight 222 lb BMI 35.8 BP 124/74 Blood Pressure Location Lt brachial Position Sitting Respiration 16 Pulse 87 Pulse Source Pulse Oximeter Temp 97.9 F Temp Source Oral Pulse Oximetry (%) 99 Oxygen Delivery Method Room Air Intake Visit Reasons: Annual PE Intake Note: Pt is here today for PE. Allergies Sulfa (Sulfonamide Antibiotics) Allergy (Unknown, Verified 06/13/25 13:01) Rash Medication List - Last Reconciled 06/13/25 by Adilia Shoemaker MD atorvastatin 20 mg PO DAILY cholecalciferol (vitamin D3) 50 mcg PO DAILY lisinopril 5 mg PO DAILY Tobacco use date assessed: 06/13/25 Dental Screening Dental Screen Date: 06/13/25 Did you have a dental visit in the last 12 months?: Yes Did you have a dental problem in the last 6 months where you did not have access to dental care?: No Was dental information given to patient?: Patient has dentist HPI Annual PE HPI Details Pt presents for PE. [facility] Medical History Normal Pap smear Mammogram normal Hypertension Hyperlipidemia Annual physical exam Surgical History (Updated 06/13/25 @ 13:40 by Adilia Shoemaker MD) H/O colonoscopy Family History Father No problems noted. Mother No problems noted. Social History Housing: House Patient Tobacco Use Status: Never used Tobacco e-Cigarette/Vaping Use: Never Used service: No Current occupational status: employed Cognitive needs: No Hearing needs: No Vision needs: Yes Questionnaire PHQ-9 Over the last 2 weeks, how often have you been bothered by any of the following problems? 1. Little interest or pleasure in doing things: not at all 2. Feeling down, depressed, or hopeless: not at all 3. Trouble falling or staying asleep, or sleeping too much: not at all 4. Feeling tired or having little energy: not at all 5. Poor appetite or overeating: not at all 6. Feeling bad about yourself - or that you are a failure or have let yourself or your family down: not at all 7. Trouble concentrating on things, such as reading the newspaper or watching television: not at all 8. Moving or speaking so slowly that other people could have noticed. Or the opposite - being so fidgety or restless that you have been moving around a lot more than usual: not at all 9. Thoughts that you would be better off or of hurting yourself in some way: not at all Total score: 0 Depression Screening Interpretation: Negative Depression Screening Done: Yes 49838 - PHQ-9 Billing: Yes Source: Developed by Drs. Ish Reyes, Candelaria Garcia, Merlin Oliver and colleagues, with an educational liat from [employer]. Thrive Questionnaire Date Thrive assessed: 06/13/25 I am a: Patient What is your living situation today?: I have a steady place to live Within the past 12 months, did the food you bought not last and you didn't have the money to get more?: Never true Within the past 12 months, did you worry whether your food would run out before you got money to buy more?: Never true Do you have trouble paying for medicines?: No Do you have trouble getting transportation to medical appointments?: No Do you have trouble paying your heating and electricity bill?: No Do you have trouble taking care of your child, family member or friend?: No Do you have trouble with day-to-day activities such as bathing, preparing meals, shopping, managing finances, etc.?: No Are you currently unemployed and looking for a job?: No Are you interested in more education?: No THRIVE Score: 0 AUDIT C Alcohol Use Questionnaire (AUDIT-C) 1. How often do you have a drink containing alcohol?: Never 3. How often do you have six or more drinks on one occasion?: Never Total Score: 0 CRISTINA-7 AMB Questionnaire CRISTINA-7 Date CRISTINA - 7 assessed: 06/13/25 Feeling nervous, anxious, or on edge: 0 = Not at all Not being able to stop or control worryin = Not at all Worrying too much about different things: 0 = Not at all Trouble relaxin = Not at all Being so restless that it is hard to sit still: 0 = Not at all Becoming easily annoyed or irritable: 0 = Not at all Feeling afraid as if something awful might happen: 0 = Not at all Total CRISTINA-7 score (0-4 normal; 5-9 mild; 10-14 moderate; 15-21 severe): 0 Source: Developed by Drs. Ish Reyes, Candelaria Garcia, Merlin Oliver and colleagues, with an educational liat from [employer]. CRISTINA-7 Assessment Billing CRISTINA-7 Assessment Tool: CRISTINA-7 Assessment 05710 Review of Systems Const All systems reviewed & are unremarkable except as noted in HPI and below ENT Reports no additional complaints Card Reports no additional complaints Resp Reports no additional complaints GI Reports no additional complaints Reports no additional complaints Physical exam (Primary Care) Vital Signs: Last Vital Signs Temp 97.9 F 06/13/25 13:01 Pulse 87 06/13/25 13:01 Resp 16 06/13/25 13:01 BP 124/74 06/13/25 13:01 Pulse Ox 99 06/13/25 13:01 Oxygen Delivery Method Room Air 06/13/25 13:01 BMI result Body Mass Index 35.8 Tobacco/Smoking Status: Tobacco use Status Tobacco use date assessed 06/13/25 06/13/25 13:03 Patient Tobacco Use Status Never used Tobacco 06/13/25 13:03 e-Cigarette/Vaping Use Never Used 06/13/25 13:03 PHQ-9: PHQ-9 Score PHQ-9: Total score 0 06/13/25 13:09 Depression Screening Interpretation: Negative Thrive Assessment: Date of Thrive Assessment Date Thrive assessed 06/13/25 06/13/25 13:09 Const General: no acute distress HENMT Head: Yes normal to inspection Eyes General: appearance normal, both eyes and all related structures Neck Neck: Yes no lymphadenopathy and Yes supple Resp Effort & Inspection: normal respiratory effort Auscultation: clear to auscultation bilaterally Cardio Rhythm: regular rhythm Heart sounds: S1 normal heart sound present and S2 normal heart sound present GI Inspection: Yes normal to inspection Palpation (GI): Soft to palpation Percussion: Yes normal to percussion Auscultation: normal bowel sounds Coding Level of Care Code Est Pt Prev Care 40-64y(81440) Diagnoses Hyperlipidemia E78.5 Hypertension I10 Annual physical exam Z00.00 Additional Codes CRISTINA-7 Assessment Billing - CRISTINA-7 Assessment Tool: CRISTINA-7 Assessment 35088 ([id number]) PHQ-9 - 62699 - PHQ-9 Billing: Yes ([id number]) Assessment & Plan Assessment & Plan (1) Hyperlipidemia: Code(s): E78.5 - Hyperlipidemia, unspecified Category: Medical Plan: Patient was advised to restart atorvastatin, low-cholesterol diet increase physical activity weight loss discussed with the patient follow-up in 6 months with a fasting labs before (2) Hypertension: Code(s): I10 - Essential (primary) hypertension Category: Medical Plan: Continue lisinopril low-sodium diet regular exercise and weight loss discussed with the patient (3) Annual physical exam: Code(s): Z00.00 - Encounter for general adult medical examination without abnormal findings Category: Medical Plan: Well-balanced diet regular exercise discussed with the patient she is up-to-date with the mammogram colonoscopy and Pap smear by cyber security architect. Patient will return in 6 months with a fasting labs before Orders: Orders Lipid Panel 6 Months E78.5 - Hyperlipidemia, unspecified, I10 - Essential (primary) hypertension TSH reflex Free T4 6 Months E78.5 - Hyperlipidemia, unspecified, I10 - Essential (primary) hypertension Comprehensive [place]. Panel Fast 6 Months E78.5 - Hyperlipidemia, unspecified, I10 - Essential (primary) hypertension Complete Blood Count Auto Diff 6 Months E78.5 - Hyperlipidemia, unspecified, I10 - Essential (primary) hypertension
--- OUTSIDE RECORDS SUMMARY | 2025-06-13 15:17 | XMS_ITS | Clinical Summary ---
Author Organization [facility] Address [address] [place] [address] Phone Care Team Providers Care Internet Project Manager Name Role Phone Adilia Shoemaker MD Primary Care Provider [phone] Allergies Active Allergy Reactions Criticality Noted Date [...] Maintenance Results * COLONOSCOPY Anesthesia - MAC; [facility] ENDOSCOPY (01/10/2025 2:51 PM EDT) [...] pathology results. Narrative 01/10/2025 2:50 PM EDT [facility] Patient Name: Isha Hayes Procedure Date: 01/10/2025 2:22 PM Date of : 1960 Age: 64 Gender: Female Note Status: Finalized Attending MD: John Head DO, [id number] Procedure Date No Time: 01/10/2025 Procedure: Colonoscopy [...] the physician, the nurse, the anesthesiologist, the executive legal secretary and the substation maintenance technician in the pre-procedure area in the [...] retroflexion views. Procedure Code(s): --- Professional --- 69903, Colonoscopy, flexible; with removal of tumor(s), polyp(s), or other lesion(s) by snare technique Diagnosis Code(s): --- Professional --- D12.0, Benign neoplasm of cecum Z86.010, Personal history of colonic polyps K64.9, Unspecified hemorrhoids CPT copyright 2020 [employer]. All rights reserved. The codes documented in this report are preliminary and upon brick and tile making machine operator review may be revised to meet current compliance requirements. JOHN Head DO 01/10/2025 2:50:13 PM This report has been signed electronically.John Head DO Number of Addenda: 0 Note Initiated On: 01/10/2025 2:22 PM Scope Withdrawal Time: 0 hours 6 minutes 28 seconds Scope In: 2:40:12 PM Scope Out: 2:48:53 PM Endoscopy Department at [facility] - [address] [place] [id number] Procedure Note John Head DO - 01/10/2025 [facility] Patient Name: Isha Hayes Procedure Date: 01/10/2025 2:22 PM Date of : 1960 Age: 64 Gender: Female Note Status: Finalized Attending MD: John Head DO, [id number] Procedure Date No Time: 01/10/2025 Procedure: Colonoscopy [...] the physician, the nurse, the anesthesiologist, the executive legal secretary and thetechnician in the pre-procedure area in [...] retroflexion views. Procedure Code(s): --- Professional --- 23152, Colonoscopy, flexible; with removal of tumor(s), polyp(s), or other lesion(s) by snare technique Diagnosis Code(s): --- Professional --- D12.0, Benign neoplasm of cecum Z86.010, Personal history of colonic polyps K64.9, Unspecified hemorrhoids CPT copyright 2020 [employer]. All rights reserved. The codes documented in this report are preliminary and upon brick and tile making machine operator reviewmay be revised to meet current compliance requirements. JOHN Head DO 01/10/2025 2:50:13 PM This report has been signed electronically.John Head DO Number of Addenda: 0 Note Initiated On: 01/10/2025 2:22 PM Scope Withdrawal Time: 0 hours 6 minutes 28 seconds Scope In: 2:40:12 PM Scope Out: 2:48:53 PM Endoscopy Department at [facility] - [address] [place] [id number] IMPRESSION: - Hemorrhoids found on perianal exam. [...] Relevant to Health Maintenance Insurance Care Teams Internet Project Manager Relationship Specialty Start Date End Date Adilia Shoemaker MD [address] [place] [id number] PCP - General Internal Medicine 01/10/25
== END 2025-06-13 13:48 | disposition home or self-care (01) ==
LOC: HO.HMCC 13:00
PROVIDERS: PCP Internal Medicine; Visit Provider Internal Medicine
DX: E78.5 Hyperlipidemia, unspecified (principal); I10 Essential (primary) hypertension; Z00.00 Encounter for general adult medical examination without abnormal findings

== ENCOUNTER → 2025-06-13 12:59 | Outpatient (BNVA) | payer BC, SELFPAY | PROVIDERS: PCP Internal Medicine; Visit Provider Internal Medicine | DX: Z00.00 Encounter for general adult medical examination without abnormal findings (principal); I10 Essential (primary) hypertension; E78.5 Hyperlipidemia, unspecified | CPT/HCPCS: 96127 ==